=== PATIENT | female | born 1970 | race Two or more races ===

== ENCOUNTER 2024-05-30 09:20 | Emergency (ER) | payer OTHER, SELFPAY ==
[2024-05-30] VITALS (28 sets, daily range): BP systolic 112–143; BP diastolic 66–83; PULSE 72–96; TEMP 37.7–39.2; O2SAT 95–100; BMI 26.3
--- NOTE | 2024-05-30 09:31 | ECG_ITS ---
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
--- NOTE | 2024-05-30 09:31 | XR_ITS ---
The [address] [address] Patient Name: ROGELIO NOE MRN: [id number] date: 1970 Sex: F Assigned Patient Location: ER Current Patient Location: ER Accession/Order Number: [id number] Exam Date: 05/30/2024 09:45 Report Date: 05/30/2024 11:32 At the request of: SIVA PETERS Procedure: XR chest 1V CHEST X-RAY, 1 VIEW HISTORY: Weakness. COMPARISON: None. FINDINGS: The heart, amy, and mediastinum are unremarkable. The lungs are grossly clear. There are no pleural effusions. There is no pneumothorax. XR/XR chest 1V IMPRESSION: No evidence of acute cardiopulmonary disease. Electronically authenticated by: MEGAN YEBOAH Date: 05/30/2024 11:32
[2024-05-30 09:35] LABS: Glucometer 117 mg/dL (74-106)
--- NOTE | 2024-05-30 09:35 | ED_ITS ---
HPI HPI - General Adult General Chief complaint: Weakness Stated complaint: LOW SUGAR READING Time Seen by Provider: 05/30/24 09:24 Source: patient and family Mode of arrival: Wheelchair Limitations: no limitations History of Present Illness HPI narrative: 53-year-old female presents to the emergency department for not feeling well. This is the third day. When it first started she was at work and they checked her blood sugar and it was 58. She went home from work but still does not feel well. She feels weak. She has not had a fever or repetitive vomiting though she vomited last night. No diarrhea cough chest pain or complaints of shortness of breath. She is not diabetic. Related Data Home Medications ?Medication ?Instructions ?Recorded ?Confirmed lisinopril 20 1 tab PO DAILY 05/30/24 05/30/24 mg-hydrochlorothiazide 12.5 mg tablet rosuvastatin 10 mg tablet 10 mg PO BEDTIME 05/30/24 05/30/24 Previous Rx's ?Medication ?Instructions ?Recorded cephalexin 500 mg capsule 500 mg PO TID 7 days #21 caps 05/30/24 Allergies Allergy/AdvReac Type Severity Reaction Status Date / Time No Known Drug Allergies Allergy Verified 05/30/24 09:32 Opioid HPI Opioid Management Most Recent Opioid Data: Last Pain Scale 4 05/30/24 10:02 Review of Systems ROS Narrative A ten point review of systems is negative except as noted above. Exam Narrative Exam Narrative: Nurses note and vital signs reviewed and patient is not hypoxic. General: The patient appears well and in no apparent distress. Patient is resting comfortably on cart. Skin: Warm, dry, no pallor noted. There is no rash noted. Head: Normocephalic, atraumatic Eye: Normal conjunctiva, no drainage Ears, Nose, Mouth, and Throat: oral mucosa is moist. Nares patent. Cardiovascular: Regular Rate and Rhythm Respiratory: Patient is in no distress, no accessory muscle use, lungs are clear to auscultation, no wheezing, rales or rhonchi Back: non-tender GI: Soft not noted, no masses Musculoskeletal: The patient has no evidence of calf tenderness, no pitting edema, symmetrical pulses noted bilaterally Neurological: A&O x4, normal speech Psychiatric: Cooperative Constitutional Vital Signs, click to edit/add: Last Vital Signs Temp 99.9 F 06/29/24 11:32 Pulse 73 05/30/24 11:30 Resp 19 05/30/24 11:30 BP 118/66 05/30/24 11:30 Pulse Ox 98 05/30/24 11:30 O2 Del Method Room Air 05/30/24 10:02 Course Vital Signs Vital signs: Vital Signs Temperature 102.6 F H 05/30/24 09:28 Pulse Rate 96 H 05/30/24 09:28 Respiratory Rate 18 05/30/24 09:28 Blood Pressure 143/83 H 05/30/24 09:28 Pulse Oximetry 97 05/30/24 09:28 Oxygen Delivery Method Room Air 05/30/24 09:28 Temperature 99.9 F 05/30/24 11:32 Pulse Rate 73 05/30/24 11:30 Respiratory Rate 19 05/30/24 11:30 Blood Pressure 118/66 05/30/24 11:30 Pulse Oximetry 98 05/30/24 11:30 Oxygen Delivery Method Room Air 05/30/24 10:02 Medical Decision Making MDM Narrative Medical decision making narrative: UTI is identified. Blood work is normal and CAT scan shows no evidence of pyelonephritis. Temperature has normalized with Tylenol and she feels much better with improvement of her temperature and IV fluids and she is able to be discharged home on Keflex. Treatment diagnosis and follow-up were discussed with the patient. Differential Diagnosis Differential Diagnosis: UTI, pyelonephritis, viral illness, pneumonia Lab Data Lab results reviewed: Yes I reviewed the patient's lab results Labs: Lab Results 05/30/24 05/30/24 05/30/24 Range/Units 09:28 09:43 09:46 WBC 5.3 (4.0-11.0) 10^3/uL RBC 4.40 (4.20-5.40) 10^6/uL Hgb 13.3 (12.0-16.0) g/dL Hct 39.6 (36.0-48.0) % MCV 90.0 (81.0-99.0) fL MCH 30.2 (26.7-34.0) pg MCHC 33.6 (29.9-35.2) g/dL RDW 12.5 (11.0-15.0) % Plt Count 170 (150-450) 10^3/uL MPV 10.5 (9.5-13.5) fL Neut % (Auto) 76.1 H (43.0-75.0) % Lymph % (Auto) 14.6 L (20.5-60.0) % [place] % (Auto) 7.9 (1.7-12.0) % Eos % (Auto) 0.6 L (0.9-7.0) % Baso % (Auto) 0.6 (0.2-2.0) % Neut # (Auto) 4.1 (1.4-6.5) 10^3/uL Lymph # (Auto) 0.8 L (1.2-3.8) 10^3/uL [place] # (Auto) 0.4 (0.3-0.8) 10^3/uL Eos # (Auto) 0.0 (0.0-0.7) 10^3/uL Baso # (Auto) 0.0 (0.0-0.1) 10^3/uL Abs Immat Gran (auto) 0.01 (0.00-0.03) 10^3/uL Imm/Tot Granulo (auto) 0.2 (0.0-0.5) % Sodium 140 (136-145) mmol/L Potassium 3.7 (3.5-5.1) mmol/L Chloride 102 (98-107) mmol/L Carbon Dioxide 26.1 (21.0-32.0) mmol/L Anion Gap 15.6 BUN 14.0 (7.0-18.0) mg/dL Creatinine 0.80 (0.55-1.02) mg/dL Est GFR ( Amer) >60 (>=60) Est GFR (Non-Af Amer) >60 (>=60) BUN/Creatinine Ratio 17.5 Glucose 128 H (74-106) mg/dL Calcium 9.2 (8.5-10.1) mg/dL Troponin I High Sens 4.4 (4.0-51.3) pg/mL Urine Color Yellow (YELLOW) Urine Clarity Cloudy A (CLEAR) Urine pH 5.5 (5.0-9.0) Ur Specific [place] >=1.030 A (1.005-1.025) Urine Protein 100 A (NEG/TRACE) mg/dL Urine Glucose (UA) Negative (NEGATIVE) mg/dL Urine Ketones 15 A (NEGATIVE) mg/dL Urine Occult Blood Large A (NEGATIVE) Urine Nitrite Negative (NEGATIVE) Urine Bilirubin Negative (NEGATIVE) Urine Urobilinogen 1.0 (0.2-1.0) EU/dL Ur Leukocyte Esterase Moderate A (NEGATIVE) Urine RBC 20-50 A (0-2) #/HPF Urine WBC >100 A (NONE SEEN) #/HPF Ur Squamous Epith Cells Few A (NONE/RARE) #/LPF Urine Bacteria Large A (NONE SEEN) #/HPF Urine Mucus None seen (NONE SEEN) Ur Culture Indicated? Yes SARS-CoV-2 Ag (CV2AG) Negative (NEGATIVE) POC Glucose 117 H (74-106) mg/dL Imaging Data CT scan - abdomen: Radiologist's impression: ITS Impressions Chest X-Ray 05/30/24 09:31 IMPRESSION: No evidence of acute cardiopulmonary disease. Electronically authenticated by: MEGAN YEBOAH Date: 05/30/2024 11:32 Abdomen/Pelvis CT 05/30/24 10:38 IMPRESSION: No CT evidence for pyelonephritis. Limited evaluation of the bladder due to nondistention, can't exclude bladder wall thickening. Correlate with urinalysis. Pelvic solid mass which may represent a uterine fibroid. Recommend correlation with ultrasound pelvis. Minimal free fluid in the pelvis. Normal appendix. Electronically authenticated by: MEGAN YEBOAH Date: 05/30/2024 12:58 Discharge Plan Discharge Stand Alone Forms: Portal Instructions Chief Complaint: Weakness Clinical Impression: Urinary tract infection Patient Disposition: Home, Self-Care Time of Disposition Decision: 13:14 Condition: Good Mode of Transportation: Private Vehicle Prescriptions / Home Meds: New cephalexin 500 mg capsule 500 mg PO TID 7 Days Qty: 21 0RF No Action lisinopril-hydrochlorothiazide 20-12.5 mg tablet 1 tab PO DAILY rosuvastatin 10 mg tablet 10 mg PO BEDTIME Print Language: Swedish Instructions: Urinary Tract Infection in Women (ED) Referrals: Physician,Non-Staff, MD [Physician] - 1 week
[2024-05-30] MEDS: ONDANSETRON PF 4 MG/2 ML VIAL IV (09:39)
[2024-05-30] MEDS: 0.9 % SODIUM CHLORIDE 1,000 ML 1000 ML IV (09:57)
[2024-05-30] MEDS: ACETAMINOPHEN 325 MG TABLET 650 MG PO (09:57)
[2024-05-30 10:01] LABS: Basophils Percent Auto 0.6 % (0.2-2.0); Eosinophils Percent Auto 0.6 % (0.9-7.0); Hematocrit 39.6 % (36.0-48.0); Hemoglobin 13.3 g/dL (12.0-16.0); Immature Granulocytes Abs Auto 0.01 10^3/uL (0.00-0.03); Immature Granulocytes Pct Auto 0.2 % (0.0-0.5); Lymphocytes Absolute Auto 0.8 10^3/uL (1.2-3.8); Lymphocytes Percent Auto 14.6 % (20.5-60.0); Mean Corpuscular HGB Conc 33.6 g/dL (29.9-35.2); Mean Corpuscular Hemoglobin 30.2 pg (26.7-34.0); Mean Platelet Volume 10.5 fL (9.5-13.5); Monocytes Absolute Auto 0.4 10^3/uL (0.3-0.8); Monocytes Percent Auto 7.9 % (1.7-12.0); Neutrophils Absolute Auto 4.1 10^3/uL (1.4-6.5); Neutrophils Percent Auto 76.1 % (43.0-75.0); Platelet Count 170 10^3/uL (150-450); Red Cell Distribution Width 12.5 % (11.0-15.0); White Blood Count 5.3 10^3/uL (4.0-11.0)
[2024-05-30 10:02] LABS: Bilirubin Urine NEGATIVE (NEGATIVE); Blood Urine LARGE (NEGATIVE); Color Urine YELLOW (YELLOW); Glucose Urine UA NEGATIVE (NEGATIVE); Ketones Urine 15 mg/dL (NEGATIVE); Leukocyte Esterase Urine MODERATE (NEGATIVE); Nitrite Urine NEGATIVE (NEGATIVE); Protein Urine 100 mg/dL (NEG/TRACE); Specific Gravity Urine >=1.030 (1.005-1.025); pH Urine 5.5 (5.0-9.0)
[2024-05-30 10:13] LABS: Internal Control Within Normal Limits; SARS-CoV-2 Ag NEGATIVE (NEGATIVE)
[2024-05-30 10:17] LABS: Clarity Urine CLOUDY (CLEAR)
[2024-05-30 10:18] LABS: Bacteria Urine LARGE #/HPF (NONE SEEN); Mucus Urine NONE SEEN (NONE SEEN); RBC Urine 20-50 #/HPF (0-2); Squamous Epithelial Cell Urine FEW #/LPF (NONE/RARE); WBC Urine >100 #/HPF (NONE SEEN)
[2024-05-30 10:19] LABS: Urine Culture Indicated YES
[2024-05-30 10:23] LABS: Anion Gap 15.6; BUN Creatinine Ratio 17.5; Calcium 9.2 mg/dL (8.5-10.1); Carbon Dioxide 26.1 mmol/L (21.0-32.0); Chloride 102 mmol/L (98-107); Estimated GFR (African America >60 (>=60); Estimated GFR (Non-African Ame >60 (>=60); Glucose 128 mg/dL (74-106); Potassium 3.7 mmol/L (3.5-5.1); Sodium 140 mmol/L (136-145); Troponin I High Sensitivity 4.4 pg/mL (4.0-51.3)
--- NOTE | 2024-05-30 10:38 | CT_ITS ---
The [address] [address] Patient Name: ROGELIO NEO MRN: [id number] date: 1970 Sex: F Assigned Patient Location: ER Current Patient Location: [facility] Accession/Order Number: [id number] Exam Date: 05/30/2024 11:05 Report Date: 05/30/2024 12:58 At the request of: SIVA PETERS Procedure: CT abdomen pelvis w con CT ABDOMEN AND PELVIS WITH CONTRAST HISTORY: Abdominal pain. Fever. Weakness. UTI. COMPARISON: None. METHOD: Dose reduction techniques were achieved by using automated exposure control and/or adjustment of mA and/or kV according to patient size and/or use of iterative reconstruction technique. FINDINGS: The lung bases are clear. There is no intrahepatic mass or intrahepatic biliary ductal dilatation. The pancreas and stomach are normal appearing. The spleen is normal in size. The adrenal glands are normal appearing. There are no solid renal masses or hydronephrosis. There is no perinephric inflammatory changes. There is no bowel wall thickening or obstruction. The appendix is normal appearing. The bladder is decompressed which limits evaluation, can't exclude bladder wall thickening. There is a pelvic solid mass measuring 2.8 x 2.2 cm. There is minimal free fluid in the pelvis. There is no evidence of lymphadenopathy. There are no acute bony abnormalities. CT/CT abdomen pelvis w con IMPRESSION: No CT evidence for pyelonephritis. Limited evaluation of the bladder due to nondistention, can't exclude bladder wall thickening. Correlate with urinalysis. Pelvic solid mass which may represent a uterine fibroid. Recommend correlation with ultrasound pelvis. Minimal free fluid in the pelvis. Normal appendix. Electronically authenticated by: MEGAN YEBOAH Date: 05/30/2024 12:58
[2024-05-30] MEDS: CEFTRIAXONE 1,000 MG in 0.9 % SODIUM CHLORIDE 50 ML 100 MG IV (10:55)
== END 2024-05-30 13:25 | disposition home or self-care (01) ==
PROVIDERS: Emergency Provider Emergency Medicine; PCP Internal Medicine
DX: N39.0 Urinary tract infection, site not specified (principal); Z20.822 Contact with and (suspected) exposure to COVID-19
CPT/HCPCS: 36415; 71045; 74177; 80048; 81001; 84484; 85025; 87086; 87150; 87186; 87811; 93005; 96361; 96365; 96375; 99285; J0696; J2405; Q9966